=== PATIENT | female | born 1965 | race Caucasian/White ===

== ENCOUNTER 2023-07-11 19:07 | Emergency (ER) | payer OTHER ==
[~2023-07-11] VITALS: Ht 167.6 cm; Wt 94.0 kg
[2023-07-11 19:24] VITALS: O2SAT 98
[2023-07-11 22:50] VITALS: BP 139/78; PULSE 88; RESP 19; TEMP 98.6
== END 2023-07-11 22:54 | disposition home or self-care (01) ==
LOC: ER 19:07
DX: S09.90XA Unspecified injury of head, initial encounter (principal); E11.9 Type 2 diabetes mellitus without complications; W18.30XA Fall on same level, unspecified, initial encounter; Y93.89 Activity, other specified; Y92.89 Other specified places as the place of occurrence of the external cause; Y99.8 Other external cause status
CPT/HCPCS: 81025; 99284